=== PATIENT | male | born 1990 | race American Indian/Alaskan Native ===

== ENCOUNTER 2017-08-16 22:22 | Emergency (ER) | payer OTHER ==
--- NOTE | 2017-08-16 23:03 | RAD ---
RADIOGRAPH LEFT KNEE 4 VIEWS: 08/16/17 HISTORY: 27-year-old male status post blunt trauma to the left knee. FINDINGS: There is a joint effusion. No fracture, dislocation, or any other osseous abnormality. IMPRESSION: 1. Joint effusion. 2. Otherwise negative. POS: [facility]
== END 2017-08-16 23:04 | disposition home or self-care (01) ==
LOC: SCSER 22:22
DX: S83.92XA Sprain of unspecified site of left knee, initial encounter (principal); W22.8XXA Striking against or struck by other objects, initial encounter